=== PATIENT | female | born 1955 | race Caucasian/White ===

== ENCOUNTER 2017-02-06 06:16 | Emergency (ER) | payer OTHER ==
[2017-02-06 06:20] VITALS: O2SAT 96
[2017-02-06] MEDS ORDERED: NS 500 ML IV ONE (06:29)
--- NOTE | 2017-02-06 06:30 | CPEKG ---
Heart Rate: 111 RR Interval: 541 P-R Interval: 164 QRSD Interval: 84 QT Interval: 336 QTC Interval: 457 P [place]: 61 QRS [place]: 40 T Wave [place]: -24 EKG Severity - BORDERLINE ECG - EKG Impression: SINUS TACHYCARDIA EKG Impression: PROBABLE LEFT ATRIAL ABNORMALITY EKG Impression: ST depression V4 and V5 Electronically Signed By: Jeanie Friedman 06-Feb-2017 07:14:15
--- NOTE | 2017-02-06 06:56 | EDPHY ---
H & P Stated Complaint: c/o rapid hr/nausea/light headed starting overnight Time Seen by Provider: 02/06/17 06:39 HPI/ROS: CHIEF COMPLAINT: Lightheaded, rapid heart rate HISTORY OF PRESENT ILLNESS: This is a 61-year-old female with a history of hypertension who presents with lightheadedness and a rapid heart rate. She has been ill with an upper respiratory infection for the last 3-4 days. This manifested as nasal congestion, dry cough, and laryngitis. She has not had fever. Last night she also had some body aches. She took a Mucinex DM and two Aleve. In the early hours of the morning she experienced nausea and a "gurgly" stomach. She has had 2 loose stools today. She has not vomited. When she got out of bed at 5:45 a.m. today she felt lightheaded, as if she might faint. She checked her heart rate using a pulse oximeter and it was 152. At that point she decided to come to the emergency department. She has not had chest pain. She does not feel short of breath. No recent immobility or travel. She does not take hormone replacement. REVIEW OF SYSTEMS: A ten point review of systems was performed and is negative with the exception of the items mentioned in the HPI. Source: Patient Exam Limitations: No limitations - Medical/Surgical History Hx Asthma: No Hx Chronic Respiratory Disease: No Hx Diabetes: No Hx Cardiac Disease: Yes Hx Renal Disease: No Hx Cirrhosis: No Hx Alcoholism: No Hx HIV/AIDS: No Hx Splenectomy or Spleen Trauma: No Other PMH: hypertension - Family History Significant Family History: Hypertension - Social History Smoking Status: Never smoked Alcohol Use: Occasionally Drug Use: None Additional Social History: She works as a teacher in an elementary school. Her primary care physician is Dr. Aaron Bryan. - Physical Exam Exam: General Appearance: Alert. Vital signs reviewed. blood pressure at triage was 163/99. During my exam her blood pressure was 1/34 over 86. Initial heart rate was 130, heart rate during my exam was 100-105. Pulse ox 97%. Afebrile. Eyes: Pupils equal and round, no conjunctival injection, no discharge. Anicteric. ENT, Mouth: Lips are dry. Mucous membranes are slightly dry, no oropharyngeal erythema, exudates, or edema. Neck: No lymphadenopathy, supple. No jugular venous distention. Respiratory: Lungs are clear to auscultation; no wheezes, rales, or rhonchi. Cardiovascular: Mildly tachycardic; no murmur, rub, or gallop. Gastrointestinal: Abdomen is soft and nontender, no masses or organomegaly, bowel sounds normal. Skin: Warm and dry, no rashes on exposed skin, normal color. Back: Nontender to palpation over the thoracolumbar spine. No CVAT. Extremities: No lower extremity edema, no calf tenderness or swelling. Neurological: Alert and oriented. Moving all four extremities easily and equally. Psychiatric: Normal affect. Constitutional: Initial Vital Signs Temperature (C) 36.7 C 02/06/17 06:17 Heart Rate 130 H 02/06/17 06:17 Respiratory Rate 16 02/06/17 06:17 Blood Pressure 163/99 H 02/06/17 06:17 O2 Sat (%) 96 02/06/17 06:17 O2 Delivery Mode Room Air Allergies/Adverse Reactions: No Known Allergies Allergy (Unverified 02/06/17 06:20) Home Medications: Medication Instructions Recorded Lisinopril-Hctz 10-12.5 mg Tab 02/06/17 Medical Decision Making - Diagnostics EKG Interpretation: 12 lead EKG is interpreted in Trace master View by emergency department physician. It shows sinus rhythm with a rate of 111. There is some ST depression in leads V4 and V5. ED Course/Re-evaluation: 61-year-old female with a history of hypertension who presents with tachycardia and presyncope. She has had an upper respiratory infection for the last 3 days and has been experiencing some abdominal symptoms today (nausea, loose stool). On presentation an IV was started. She does look volume depleted on exam. She received 1 L of IV fluid normal saline. CBC is normal. Troponin is normal. Potassium is mildly low at 3.3. Her blood sugar is high. She felt markedly better after receiving IV fluids. She was initially tachycardic but has not had any repeat of tachycardia in the emergency department. She is not experiencing chest pain or shortness of breath. She would like to return home ( actually she would like to go to work) and I feel that she is safe to leave the emergency department. I do not think that she needs further cardiac evaluation and I do not suspect an acute coronary syndrome. It is possible that she had a tachyarrhythmia that caused her to feel presyncopal. She will follow up with her primary care physician. She is comfortable with this plan. Differential Diagnosis: I considered a differential diagnosis including but not limited to myocardial ischemia, pulmonary embolus, chest wall pain, pleural inflammation and pulmonary infectious causes. - Data Points Laboratory Results: Laboratory Results 02/06/17 06:40 02/06/17 06:40 02/06/17 02/06/17 06:40 06:40 WBC 8.83 10^3/uL 10^3/uL (3.80-9.50) RBC 4.46 10^6/uL 10^6/uL (4.18-5.33) Hgb 13.3 g/dL g/dL (12.6-16.3) Hct 38.1 % % (38.0-47.0) MCV 85.4 fL fL (81.5-99.8) MCH 29.8 pg pg (27.9-34.1) MCHC 34.9 g/dL g/dL (32.4-36.7) RDW 12.0 % % (11.5-15.2) Plt Count 199 10^3/uL 10^3/uL (150-400) MPV 10.2 fL fL (8.7-11.7) Neut % (Auto) 72.0 % % (39.3-74.2) Lymph % (Auto) 21.3 % % (15.0-45.0) [place] % (Auto) 5.7 % % (4.5-13.0) Eos % (Auto) 0.2 % L % (0.6-7.6) Baso % (Auto) 0.3 % % (0.3-1.7) Nucleat RBC Rel Count 0.0 % % (0.0-0.2) Absolute Neuts (auto) 6.36 10^3/uL 10^3/uL (1.70-6.50) Absolute Lymphs (auto) 1.88 10^3/uL 10^3/uL (1.00-3.00) Absolute Monos (auto) 0.50 10^3/uL 10^3/uL (0.30-0.80) Absolute Eos (auto) 0.02 10^3/uL L 10^3/uL (0.03-0.40) Absolute Basos (auto) 0.03 10^3/uL 10^3/uL (0.02-0.10) Absolute Nucleated RBC 0.00 10^3/uL 10^3/uL (0-0.01) Immature Gran % 0.5 % % (0.0-1.1) Immature Gran # 0.04 10^3/uL 10^3/uL (0.00-0.10) Sodium 142 mEq/L mEq/L (134-144) Potassium 3.3 mEq/L L mEq/L (3.5-5.2) Chloride 106 mEq/L mEq/L (97-110) Carbon Dioxide 22 mEq/l mEq/l (22-31) Anion Gap 14 mEq/L mEq/L (8-16) BUN 25 mg/dL H mg/dL (7-23) Creatinine 0.9 mg/dL mg/dL (0.6-1.0) Estimated GFR > 60 Glucose 142 mg/dL H mg/dL (70-100) Calcium 9.5 mg/dL mg/dL (8.5-10.4) Troponin I < 0.012 ng/mL ng/mL (0-0.034) Medications Given: Discontinued Medications Sodium Chloride (Ns) 500 mls @ 0 mls/hr IV ONCE ONE PRN Reason: As Directed Stop: 02/06/17 06:30 Last Admin: 02/06/17 06:42 Dose: 500 mls Departure - Departure Disposition: Home, Routine, Self-Care Clinical Impression: Lightheaded, Heart palpitations Condition: Good Instructions: Palpitations (ED), Lightheadedness (ED) Additional Instructions: Follow up with Dr. Bryan. If you have a persistent rapid heartbeat, feel lightheaded or actually faint, become short of breath, or have chest pain you should be re-evaluated immediately. Referrals: Aaron Bryan MD [Primary Care Provider] - As per Instructions
[2017-02-06 06:57] LABS: % IMMATURE GRANULYOCYTES 0.5 % (0.0-1.1); ABSOLUTE IMMATURE GRANULOCYTES 0.04 10^3/uL (0.00-0.10); ADD DIFF? NO; ADD MORPH? NO; ADD SCAN? NO; ATYPICAL LYMPHOCYTE FLAG 20 (0-99); FRAGMENT RBC FLAG 0 (0-99); HEMATOCRIT 38.1 % (38.0-47.0); HEMOGLOBIN 13.3 g/dL (12.6-16.3); LEFT SHIFT FLG 0 (0-99); LIPEMIA HEMOLYSIS FLAG 90 (0-99); MEAN CELL HEMOGLOBIN 29.8 pg (27.9-34.1); MEAN CELL HEMOGLOBIN CONCENTR. 34.9 g/dL (32.4-36.7); MEAN CELL VOLUME 85.4 fL (81.5-99.8); MEAN PLATELET VOLUME 10.2 fL (8.7-11.7); PLATELET CLUMPS FLAG 0 (0-99); PLATELET COUNT 199 10^3/uL (150-400); RED BLOOD CELL COUNT 4.46 10^6/uL (4.18-5.33)
[2017-02-06 07:10] LABS: ANION GAP 14 mEq/L (8-16); CALCIUM 9.5 mg/dL (8.5-10.4); CARBON DIOXIDE 22 mEq/l (22-31); CHLORIDE 106 mEq/L (97-110); CREATININE 0.9 mg/dL (0.6-1.0); GLOMERULAR FILTRATION RATE > 60; GLUCOSE 142 mg/dL (70-100); POTASSIUM 3.3 mEq/L (3.5-5.2); SODIUM 142 mEq/L (134-144)
[2017-02-06 07:22] LABS: TROPONIN I < 0.012 ng/mL (0-0.034)
--- NOTE | 2017-02-06 07:38 | CPEKG ---
Heart Rate: 92 RR Interval: 652 P-R Interval: 164 QRSD Interval: 82 QT Interval: 364 QTC Interval: 451 P [place]: 36 QRS [place]: 22 T Wave [place]: 17 EKG Severity - BORDERLINE ECG - EKG Impression: SINUS RHYTHM EKG Impression: BORDERLINE R WAVE PROGRESSION, ANTERIOR LEADS EKG Impression: BORDERLINE T ABNORMALITIES, ANTERIOR LEADS Electronically Signed By: Jeanie Friedman 06-Feb-2017 07:47:15
[2017-02-06 07:51] VITALS: BP 137/87; PULSE 86; RESP 18; TEMP 97.7
== END 2017-02-06 07:48 | disposition home or self-care (01) ==
DX: R42 Dizziness and giddiness (principal); R00.2 Palpitations; I10 Essential (primary) hypertension

== ENCOUNTER → 2018-12-06 | Outpatient (CLI) | payer OTHER | LOC: FIMAGING 08:03 | PROVIDERS: ATTEND Family Medicine | DX: M10.9 Gout, unspecified (principal); I10 Essential (primary) hypertension; M19.041 Primary osteoarthritis, right hand; M19.042 Primary osteoarthritis, left hand; M19.071 Primary osteoarthritis, right ankle and foot; M19.072 Primary osteoarthritis, left ankle and foot; M20.11 Hallux valgus (acquired), right foot; M20.12 Hallux valgus (acquired), left foot ==